=== PATIENT | female | born 2000 | race Caucasian/White ===

== ENCOUNTER 2024-07-22 21:17 | Emergency (ER) | payer OTHER ==
[2024-07-22 21:24] VITALS: BP 119/76; PULSE 116; RESP 20; TEMP 98.4; BMI 27.7
[2024-07-22] MEDS: IBUPROFEN 600 MG TABLET (FP) PO ONE (21:32)
[2024-07-22] MEDS ORDERED: IBUPROFEN 600 MG TABLET (FP) PO ONE (21:32)
== END 2024-07-22 22:30 | disposition left against medical advice (07) ==
LOC: FER 21:17
DX: S69.92XA Unspecified injury of left wrist, hand and finger(s), initial encounter (principal); W23.0XXA Caught, crushed, jammed, or pinched between moving objects, initial encounter
CPT/HCPCS: 73140-TC-LT-FY; 99283-25